=== PATIENT | male | born 1965 | race Caucasian/White ===

== ENCOUNTER 2020-12-07 14:53 | Emergency (ER) | payer OTHER ==
[~2020-12-07] VITALS: Ht 177.8 cm; Wt 99.8 kg
[2020-12-07 15:07] VITALS: BP_SYST 140
[2020-12-07 16:01] VITALS: BP_SYST 140
== END 2020-12-07 16:02 | disposition home or self-care (01) ==
LOC: SED 14:53
DX: S09.90XA Unspecified injury of head, initial encounter (principal); W22.8XXA Striking against or struck by other objects, initial encounter; Y93.01 Activity, walking, marching and hiking; Y92.89 Other specified places as the place of occurrence of the external cause; Y99.8 Other external cause status
CPT/HCPCS: 99281